=== PATIENT | male | born 1970 | race Caucasian/White ===

== ENCOUNTER 2021-09-08 17:57 | Emergency (ER) | payer OTHER ==
[~2021-09-08] VITALS: Ht 182.9 cm; Wt 65.8 kg
[~2021-09-08 17:57] MED LIST: CRUTCH3 USE; HYDACE5 PO; NAPR500 PO
[2021-09-08] MEDS ORDERED: Percocet 5-3251 EACH PO (21:11)
[2021-09-08] MEDS ORDERED: ONDA4ODT SL (21:11)
== END 2021-09-08 21:57 | disposition home or self-care (01) ==
LOC: ER 17:57
DX: S01.01XA Laceration without foreign body of scalp, initial encounter (principal); S09.90XA Unspecified injury of head, initial encounter; M54.6 Pain in thoracic spine; F17.210 Nicotine dependence, cigarettes, uncomplicated; W22.8XXA Striking against or struck by other objects, initial encounter
CPT/HCPCS: 70450; 72070; 72125; 99284-25; A9270